=== PATIENT | female | born 1970 | race Caucasian/White ===

== ENCOUNTER → 2019-12-12 | Outpatient (CLI) | payer BC ==
[~2019-12-12] MED LIST: BENI20TA18 PO; IBUP200C89 PO; MIRE1IUD IU; PERC5TAB12 PO; ROSU10TA6 PO; XARE10TA PO
[2019-12-12 09:24] LABS: HEMATOCRIT 35.7 % (36.0-47.0); HEMOGLOBIN 12.2 g/dl (12.0-15.5); MEAN CORPUSCULAR HEMOGLOBIN 33.2 pg (27.0-33.0); MEAN CORPUSCULAR HGB CONC 34.2 g/dl (32.0-36.5); MEAN CORPUSCULAR VOLUME 97.3 fl (80.0-96.0); PLATELET COUNT, AUTOMATED 225 10^3/uL (150-450); RED BLOOD COUNT 3.67 10^6/uL (4.00-5.40); WHITE BLOOD COUNT 7.3 10^3/uL (4.0-10.0)
[2019-12-12 09:34] LABS: INR 0.95; PROTHROMBIN TIME 12.8 SECONDS (12.5-14.3)
[2019-12-12 09:48] LABS: ERYTHROCYTE SEDIMENTATION RATE 19 mm/hr (0-20)
[2019-12-12 09:50] LABS: ALBUMIN 3.8 GM/DL (3.2-5.2); ALT/SGPT 40 U/L (12-78); BILIRUBIN,TOTAL 0.4 MG/DL (0.2-1.0); BLOOD UREA NITROGEN 7 MG/DL (7-18); CALCIUM LEVEL 9.2 MG/DL (8.5-10.1); CARBON DIOXIDE LEVEL 30 MEQ/L (21-32); CHLORIDE LEVEL 107 MEQ/L (98-107); GLOMERULAR FILTRATION RATE > 60.0 (>58); GLUCOSE, FASTING 84 MG/DL (70-100); SODIUM LEVEL 142 MEQ/L (136-145); TOTAL PROTEIN 7.3 GM/DL (6.4-8.2)
--- NOTE | 2019-12-12 10:16 | ECGEPIP ---
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
--- NOTE | 2019-12-17 10:41 | REP ---
CHEST XRAY: 12/12/19 CLINICAL: Preoperative assessment for left knee replacement. TECHNIQUE: PA and lateral. COMPARISON: None. FINDINGS: Mediastinum and cardiac silhouette normal. Lung valdez are clear. No consolidation, effusion, or pneumothorax. Skeletal structures intact. Evidence for prior anterior cervical fixation. IMPRESSION: No acute cardiopulmonary process or focal consolidation. MTDD
== END ==
LOC: M LAB 08:49
PROVIDERS: ATTEND Orthopaedic Surgery
DX: Z01.818 Encounter for other preprocedural examination (principal); M17.12 Unilateral primary osteoarthritis, left knee; I10 Essential (primary) hypertension

== ENCOUNTER 2019-12-24 16:15 | Inpatient (IN) | payer BC ==
--- NOTE | 2019-12-21 11:05 | HPE ---
DATE OF ADMISSION: 12/31/2019 CHIEF COMPLAINT: Left knee pain. HISTORY OF PRESENT ILLNESS: Lesley is a pleasant 49-year-old female with progressively worsening left knee pain and stiffness. She has failed to improve with conservative treatment. She has elected for surgery for her continued symptoms. She has pain with weightbearing activities and her activities of daily living. X-rays of the knee are notable for advanced osteoarthritis of the left knee joint. She is consented for a left total knee arthroplasty by Dr. Bryan Neely. ALLERGIES: PENICILLIN. CURRENT MEDICATIONS: Benicar and rosuvastatin. PAST MEDICAL HISTORY: * Hypertension. * Hyperlipidemia. PAST SURGICAL HISTORY: Lumbar and cervical fusions. 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 Does not smoke. Occasionally drinks alcohol. FAMILY HISTORY: Non-contributory. REVIEW OF SYSTEMS: The patient denies chest pain, heart palpitations, cough, wheezing, difficulty breathing, and shortness of breath. She denies abdominal pain, nausea, vomiting, diarrhea, or constipation. She denies recent upper respiratory infections or urinary tract infection symptoms. She does complain of persistent pain in the left knee. PHYSICAL EXAMINATION: GENERAL: She is well-nourished, well-developed, in no acute distress, alert female patient. She ambulates with a moderate limp favoring the left lower extremity. She is not using assistive devices. VITAL SIGNS: She is 64.5 inches tall, weight 222 pounds, temperature 96.9, blood pressure 136/55, respirations 13, pulse 78. NECK: Supple without adenopathy or jugular venous distention. No carotid bruits appreciated upon auscultation. LUNGS: Clear to auscultation without rales or wheezes. HEART: Regular rate and rhythm. ABDOMEN: Bowel sounds present. EXTREMITIES: Examination of the knee revealed intact skin. She had decreased range of motion due to pain and stiffness. The limb is neurovascularly intact. IMAGING: Chest x-ray showed no acute cardiopulmonary disease processes. DIAGNOSTIC STUDIES: EKG showed sinus rhythm at 68 beats per minute. LABORATORY DATA: ProTime 12.8, INR 0.95. CBC showed a red count of 3.67, hematocrit 35.7, MCV 97.3, mean corpuscular hemoglobin of 33.2. Sed rate 19. Glucose 84, BUN 7, creatinine 0.7, sodium 142, potassium 4.0. IMPRESSION: Symptomatic osteoarthritis of the left knee joint PLAN: Consented for a left total knee arthroplasty by Dr. Bryan Neely. QUINTIN
[~2019-12-24] VITALS: Ht 157.5 cm; Wt 101.5 kg
[~2019-12-24 16:15] MED LIST changes: -PERC5TAB12 PO; -XARE10TA PO
[2019-12-31] VITALS (7 sets, daily range): BP systolic 124–128; BP diastolic 73–84
[2019-12-31] MEDS ORDERED: LIDOCAINE 1% MDV 20ML VIAL SQ PRN (06:00)
[2019-12-31] MEDS ORDERED: MIDAZOLAM INJ 2MG/2ML VIAL (J2250 PER 1MG) As Ordered ONE ×2 (06:49→07:57)
[2019-12-31] MEDS ORDERED: fentaNYL 100 MCG/2 ML INJECTION (J3010) As Ordered ONE ×2 (06:49→07:57)
[2019-12-31] MEDS ORDERED: LR 1,000 ML IV ONE (07:00)
[2019-12-31] MEDS ORDERED: PREGABALIN 75 MG CAP(LYRICA) PO ONE (07:15)
[2019-12-31] MEDS ORDERED: CelecoXIB 400 MG CAP PO ONE (07:15)
[2019-12-31] MEDS ORDERED: TRANEXAMIC ACID 100 MG/ML 10ML VIAL As Ordered ONE (07:15)
[2019-12-31] MEDS ORDERED: PERCOCET 5MG/325MG TAB PO ONE (07:15)
[2019-12-31] MEDS ORDERED: VANCOMYCIN HCL 1,000 MG, VIAL MATE ADAPTER 1 EACH in D5W 250 ML IV ONE (07:15)
[2019-12-31] MEDS ORDERED: BUPIVACAINE/EPIN 0.5% 30 ML VIAL As Ordered ONE (07:16)
[2019-12-31] MEDS ORDERED: CLINDAMYCIN INJ 900MG/6ML VIAL As Ordered ONE (07:16)
[2019-12-31] MEDS ORDERED: BUPIVACAINE HCL 0.25% 10ML VIAL As Ordered ONE (07:16)
[2019-12-31] MEDS ORDERED: EPINEPHrine INJ 1 MG/ML 1ML AMP As Ordered ONE (07:16)
[2019-12-31] MEDS ORDERED: BUPIVACAINE LIPOSOME/PF 1.3% 20ML VIAL (13.3MG/ML)(EXPAREL)(C9290 PER1MG) As Ordered ONE (07:16)
[2019-12-31] MEDS ORDERED: BUPIVACAINE HCL 0.5% 10ML VIAL As Ordered ONE (07:19)
[2019-12-31] MEDS: MIDAZOLAM INJ 2MG/2ML VIAL (J2250 PER 1MG) IV PRN ×2 (07:21→07:22)
[2019-12-31] MEDS: fentaNYL 100 MCG/2 ML INJECTION (J3010) IV PRN ×2 (07:21→07:24)
[2019-12-31] MEDS ORDERED: LIDOCAINE 2% 100MG/5ML SDV (FOR ANES.) As Ordered ONE (07:57)
[2019-12-31] MEDS ORDERED: propofoL 200 MG/20 ML VIAL As Ordered ONE ×3 (07:57→09:21)
[2019-12-31] MEDS: OLMESARTAN MEDOXOMIL 20 MG TAB (BENICAR) PO SCH (09:00)
[2019-12-31] MEDS ORDERED: LIDOCAINE 2% MDV 20ML VIAL ONE (09:32)
[2019-12-31] MEDS ORDERED: dexameTHASONE 10MG/1ML VIAL PRES.FREE (J1100 PER 1MG) ONE (09:32)
[2019-12-31] MEDS ORDERED: ROPIvacaine 0.5% 30ML INJECTION (J2795 PER 1MG) ONE (09:32)
--- NOTE | 2019-12-31 10:30 | REP ---
INDICATION: POST OP IN PACU 2238. COMPARISON: None TECHNIQUE: Two views FINDINGS: There is a right total knee arthroplasty evident with the 3 components well aligned in relationship to each other and the [place] bone. Small amounts of fluid and air in the soft tissues and joint. There is no evidence of acute fracture or foreign body. IMPRESSION: Status post left total knee arthroplasty with the components well aligned with each other and the [place] bone in the immediate postoperative the changes as expected. <Electronically signed by Amilcar Jang > 12/31/19 1020
[2019-12-31] MEDS ORDERED: LR 1,000 ML IV SCH (10:45)
[2019-12-31] MEDS ORDERED: ONDANSETRON 4MG/2ML VIAL IV PRN ×2 (10:45)
[2019-12-31] MEDS: LR 1,000 ML IV SCH ×2 (10:45→20:45)
[2019-12-31] MEDS ORDERED: PROMETHAZINE INJ 25 MG/ML VIAL (J2550) IV PRN (10:45)
[2019-12-31] MEDS ORDERED: fentaNYL 100 MCG/2 ML INJECTION (J3010) IV PRN (10:45)
[2019-12-31] MEDS ORDERED: PERCOCET 5MG/325MG TAB PO PRN (10:45)
[2019-12-31] MEDS ORDERED: ACETAMINOPHEN TAB 650MG DOSE (2X325MG) PO PRN (10:45)
[2019-12-31] MEDS ORDERED: HYDROMORPHONE HCL 0.5 MG/ 0.5 ML SYRINGE (J1170 PER 1) IV PRN ×2 (11:00)
[2019-12-31] MEDS: hydroCHLOROthiazide 12.5 MG CAPSULE PO SCH (12:58)
[2019-12-31] MEDS: ROSUVASTATIN 10 MG TAB (CRESTOR) PO SCH (12:58)
[2019-12-31] MEDS: PERCOCET 5MG/325MG TAB PO PRN ×2 (12:58→23:52)
[2019-12-31] MEDS: GABAPENTIN 100 MG CAP PO SCH ×3 (15:24→20:13)
[2019-12-31] MEDS: VANCOMYCIN HCL 1,000 MG, VIAL MATE ADAPTER 1 EACH in D5W 250 ML IV SCH (18:05)
[2020-01-01 02:00] VITALS: BP 100/64
[2020-01-01 06:00] VITALS: BP 120/68
[2020-01-01] MEDS ORDERED: PERC5TAB12 PO (06:26)
[2020-01-01] MEDS ORDERED: XARE10TA PO (06:26)
[2020-01-01] MEDS: VANCOMYCIN HCL 1,000 MG, VIAL MATE ADAPTER 1 EACH in D5W 250 ML IV SCH (06:59)
[2020-01-01] MEDS: PERCOCET 5MG/325MG TAB PO PRN ×2 (07:04→11:37)
[2020-01-01] MEDS: ROSUVASTATIN 10 MG TAB (CRESTOR) PO SCH (08:40)
[2020-01-01] MEDS: hydroCHLOROthiazide 12.5 MG CAPSULE PO SCH (08:40)
[2020-01-01] MEDS: GABAPENTIN 100 MG CAP PO SCH (08:41)
[2020-01-01] MEDS ORDERED: CelecoXIB 400 MG CAP PO ONE (09:00)
[2020-01-01] MEDS ORDERED: MOM 30ML SUSPENSION UDC PO SCH (09:00)
[2020-01-01] MEDS ORDERED: MIRALAX *UNIT DOSE* 17GM PACKET PO SCH (09:00)
[2020-01-01 10:00] VITALS: BP_SYST 101; BP_SYST 140; BP_DIAS 56; BP_DIAS 75
[2020-01-01 10:37] VITALS: BP 120/68
[2020-01-01] MEDS: OLMESARTAN MEDOXOMIL 20 MG TAB (BENICAR) PO SCH (10:37)
--- NOTE | 2020-01-01 12:47 | RO ---
DATE OF OPERATION: 12/31/2019 PREOPERATIVE DIAGNOSIS: Osteoarthritis, left knee. POSTOPERATIVE DIAGNOSIS: Osteoarthritis, left knee. PROCEDURE PERFORMED: Left total knee arthroplasty. SURGEON: Bryan Neely M.D. DJANGO DEVELOPER: Dinesh Mukherjee PA-C ANESTHESIA: Spinal with block. ESTIMATED BLOOD LOSS: Less than 60 replaced with crystalloid. COMPLICATIONS: None. TOURNIQUET TIME: 18 minutes at 250. COMPONENTS USED: DePuy ATTUNE knee system; size 6 femoral component, size 5 tibial component, 35 mm patella button, and 8 mm rotating platform polyethylene posterior stabilized spacer. One packet radiopaque bone cement. INDICATIONS FOR PROCEDURE: Progressive discomfort in the left knee with radiographic evidence of severe arthritic change. The patient has now elected for operative intervention. CONSENT: Reviewed in detail with the patient including a raimundo discussion of the pathology involved, the procedure proposed, alternatives including doing nothing or injections, and risks including, but not limited to pain, failure, need for more surgery, need for revision surgery, infection, bleeding, blood loss, blood clots, and other issues. The patient agrees to proceed. DESCRIPTION OF PROCEDURE: The patient was identified in the holding area. Site and side verified and brought to the preoperative area. A block was administered at the femoral block, and then brought to the operating room where spinal anesthesia was administered. She was positioned for exposure of the left lower extremity for arthroplasty. The tourniquet was high on the left thigh, sterilely prepped and draped in the usual fashion for exposure of the left lower extremity. Once I and the wood fence erector were comfortable with positioning and draping, a time-out was accomplished. The line of the incision was infiltrated with 0.5% Marcaine with epinephrine made with a 10-blade knife, developed down through the skin and subcuticular tissues to the extensor mechanism. Standard medial and parapatellar arthrotomy was accomplished. The patella was everted. Medial release was accomplished. Soft tissue was cleared from the anterior femur. The toe was everted and the knee was placed in the flexed position. Femoral canal was entered with the canal opening reamer. Intramedullary distal femoral cutting guide with 6 degrees valgus was installed and pinned into place. I placed Hohmann retractors. An oscillating saw was utilized to make the distal femoral cut by Mr. Mukherjee. The cut was verified and the pins were removed. AP sizing guide was applied and pinned into place. Anterior, posterior, and chamfer cuts were then made. Sizing guide removed. Attention was turned to tibial side. Extramedullary jig was applied 4 mm off the medial side, pinned into place, and verified with drop-zaynab. Hohmann retractors were placed. Oscillating saw utilized to make proximal tibial cut. Proximal tibial section removed. Next, lamina spreaders were utilized to clear posteriorly and remove meniscus. Next, a notch cutter was installed and pinned into place. A femoral notch cut was made using the oscillating saw. Blast was utilized to further contour and notch guide was removed. Next, spacer blocks were installed to predict the size 8 mm in extension, as well as flexion. Next, tibia was subluxed anteriorly. Tibial trial tray pinned into place. Tibial broach guide pinned into place. Tibial canal opening drill utilized followed by tibial broach left in place. Next, trial components were then installed. The knee was placed through a range of motion and found to be stable and full extension was easily achieved. The patella was everted. Posterior patella cut was made with the oscillating saw. A 35 mm patella button was measured, drilled, trial placed, and the knee placed through range of motion. The patella had good tracking. Next, at this stage Mr. Mukherjee stepped to the back table to prepare the bone cement. I removed all trial components and utilized pulse lavage to prepare the bone surfaces. Also, the leg was elevated and at this point, the tourniquet was inflated after gravity exsanguination. Pulse lavage was utilized to clear the bony tissues, blood, marrow, and fat. The surfaces were dried. When the cement was the appropriate consistency, posterior femoral condyle cement was applied. Tibial component cemented into place. Excess cement cleared with curettes. Femoral component cemented into place. Excess cement cleared with curettes. Nontrial rotating platform posterior stabilized spacer was installed. The knee was reduced and placed in the extended position. The patella was everted. Nontrial patella was installed, cemented into place, and clamped into place. Next, Exparel solution was injected around the knee. TXA solution was placed in the knee and allowed to stand for more than one minute. Pulse lavage was utilized for irrigation. The tourniquet was deflated. The wound was closed at the extensor mechanism with interrupted, as well as running STRATAFIX stitches. The deep dermis was closed with interrupted stitch. Prineo dressing was applied. The patient was then moved to the recovery room in good condition. For further details, please refer to the medical record. QUINTIN
[2020-01-01] MEDS ORDERED: RIVAROXABAN 10 MG TAB (XARELTO) PO SCH (18:00)
== END 2020-01-01 12:15 | disposition home or self-care (01) | DRG 302 ==
LOC: M OR 12-31 06:11 → M MS5PR 12-31 11:05
PROVIDERS: ADMIT Orthopaedic Surgery; ATTEND Orthopaedic Surgery
PROC: 0SRD0J9 Replacement of Left Knee Joint with Synthetic Substitute, Cemented, Open Approach (ICD-10-PCS; principal; 2019-12-31 07:30)
DX: M17.12 Unilateral primary osteoarthritis, left knee (principal); I10 Essential (primary) hypertension; E78.5 Hyperlipidemia, unspecified

== ENCOUNTER → 2019-12-26 | Outpatient (CLI) | payer OTHER, BC ==
[~2019-12-26] MED LIST changes: +PERC5TAB12 PO; +XARE10TA PO
== END ==
LOC: M LABSMTC 10:11
PROVIDERS: ATTEND Anesthesiology
DX: Z01.818 Encounter for other preprocedural examination (principal)
CPT/HCPCS: C9803; U0003

== ENCOUNTER → 2020-01-10 | Outpatient (CLI) | payer BC ==
--- NOTE | 2020-01-10 12:51 | REP ---
INDICATION: PAIN IN LEFT LEG. Status post recent total knee arthroplasty. Unable to extend leg or left foot. Question quadriceps tendon disruption. COMPARISON: Comparison knee radiographs December 31, 2019. This was due to surgery.. TECHNIQUE: Parasagittal and transverse scanning was performed of the anterior knee above and below the patellar prosthetic component. Scan quality was inhibited by the anterior incision, it is overlying dressing, and body habitus and edema. FINDINGS: There is fluid in the distribution of the suprapatellar bursa consistent with some postoperative joint fluid. Heterogeneous echogenicity pattern is seen in the distal vastus lateralis muscle and I cannot exclude partial tear of the distal vastus lateralis muscle. We could not confidently identify the quadriceps tendon and only identify the patellar tendon with great difficulty. Exam is technically quite challenging. Sonography was accomplished in part in my presence. The vastus medialis musculature appears more homogeneous and intact. IMPRESSION: Less than optimal exam for visualization of the quadriceps tendon itself. The patellar tendon is visualized with difficulty but appears to be intact. There is heterogeneous echogenicity in the distal vastus lateralis musculature. The quadriceps tendon was not confidently identified <Electronically signed by Porfirio Copeland > 01/10/20 [id number]
== END ==
LOC: M RAD 11:17
PROVIDERS: ATTEND Physician Assistant
DX: M79.605 Pain in left leg (principal); Z96.652 Presence of left artificial knee joint

== ENCOUNTER → 2020-04-29 | Outpatient (REF) | payer BC ==
[~2020-04-29] MED LIST changes: +BENI40TA28 PO; +BENI40TA3 PO; +BENI40TA7 PO; +CELE1CAP4 PO; +COLA50CA3 PO; +DICL50TAB PR; +DOCU10CA PO; +MAPA500T17 PO; +MEDR4PAK PO; +OXYC-1 PO; +PERC5TAB PO; +PERC7.5T12 PO; +PERCOCET PO
== END ==
LOC: M SFHCCLAY 11:50
PROVIDERS: ATTEND Nurse Practitioner Family
DX: Z01.84 Encounter for antibody response examination (principal)

== ENCOUNTER → 2022-01-01 | Outpatient (CLI) | payer MEDICARE, OTHER ==
[~2022-01-01] MED LIST changes: -BENI20TA18 PO; -BENI40TA28 PO; +OLME-1 PO; +OLME-2 PO
== END ==
LOC: M PLARAD 10:33
PROVIDERS: ATTEND Orthopaedic Surgery
DX: M25.561 Pain in right knee (principal); S83.241A Other tear of medial meniscus, current injury, right knee, initial encounter; X58.XXXA Exposure to other specified factors, initial encounter; Y92.9 Unspecified place or not applicable; Y99.9 Unspecified external cause status; Y93.9 Activity, unspecified; M79.89 Other specified soft tissue disorders; M94.261 Chondromalacia, right knee; M25.461 Effusion, right knee; M71.21 Synovial cyst of popliteal space [Baker], right knee

== ENCOUNTER 2023-03-21 10:16 | Emergency (ER) | payer BC, OTHER ==
[~2023-03-21] VITALS: Ht 157.5 cm; Wt 106.6 kg
[2023-03-21 10:18] VITALS: TEMP 97.7
[2023-03-21] MEDS ORDERED: LEVO25TA5 (10:27)
[2023-03-21 11:01] LABS: BASO % 0.2 % (0.0-1.0); EOS % 0.1 % (0.0-3.0); HEMATOCRIT 40.2 % (36.0-47.0); HEMOGLOBIN 13.9 g/dl (12.0-15.5); LYMPH # 1.4 10^3/uL (1.5-5.0); LYMPH % 14.3 % (24.0-44.0); MEAN CORPUSCULAR HEMOGLOBIN 34.5 pg (27.0-33.0); MEAN CORPUSCULAR HGB CONC 34.6 g/dl (32.0-36.5); MEAN CORPUSCULAR VOLUME 99.8 fl (80.0-96.0); MONO # 0.5 10^3/uL (0.0-0.8); MONO % 5.5 % (2.0-8.0); NEUTROPHILS # 7.7 10^3/uL (1.5-8.5); NEUTROPHILS % 79.6 % (36.0-66.0); PLATELET COUNT, AUTOMATED 228 10^3/uL (150-450); RED BLOOD COUNT 4.03 10^6/uL (4.00-5.40); WHITE BLOOD COUNT 9.7 10^3/uL (4.0-10.0)
[2023-03-21 11:12] LABS: INR 1.14; PARTIAL THROMBOPLASTIN TIME 23.9 SECONDS (24.8-34.2); PROTHROMBIN TIME 14.3 SECONDS (12.5-14.5)
[2023-03-21] MEDS ORDERED: MECLIZINE 25 MG TABLET PO ONE (11:25)
[2023-03-21 11:28] LABS: BLOOD UREA NITROGEN 8 MG/DL (9-23); CALCIUM LEVEL 9.7 MG/DL (8.5-10.1); CARBON DIOXIDE LEVEL 30 MMOL/L (20-31); CHLORIDE LEVEL 100 MMOL/L (98-107); CK-MB VALUE MASS < 1.0 NG/ML (<3.6); CPK CREATINE PHOSPHOKINASE 75 U/L (34-145); CREATININE FOR GFR 0.62 MG/DL (0.55-1.30); GLOMERULAR FILTRATION RATE > 60.0 (>51); GLUCOSE, FASTING 124 MG/DL (60-100); MB/CK RELATIVE INDEX 1.33 (< OR =4); POTASSIUM SERUM 3.6 MMOL/L (3.5-5.1); SODIUM LEVEL 135 MMOL/L (136-145)
[2023-03-21 12:30] VITALS: BP 110/58
[2023-03-21 12:31] VITALS: O2SAT 97
[2023-03-21 13:01] LABS: CK-MB VALUE MASS < 1.0 NG/ML (<3.6)
[2023-03-21 13:03] LABS: CPK CREATINE PHOSPHOKINASE 74 U/L (34-145); MB/CK RELATIVE INDEX 1.35 (< OR =4)
[2023-03-21] MEDS ORDERED: ONDANSETRON 4MG 2ML VIAL IV ONE (13:50)
[2023-03-21] MEDS ORDERED: MECL-209 PO (14:17)
== END 2023-03-21 14:43 | disposition home or self-care (01) ==
LOC: M ED 10:16
DX: H81.4 Vertigo of central origin (principal); I10 Essential (primary) hypertension; I45.81 Long QT syndrome; E78.5 Hyperlipidemia, unspecified; Z88.0 Allergy status to penicillin; Z91.041 Radiographic dye allergy status; Z79.3 Long term (current) use of hormonal contraceptives; Z79.83 Long term (current) use of bisphosphonates; Z79.899 Other long term (current) drug therapy
CPT/HCPCS: 70450; 70544; 70551; 71045; 80047; 80048; 82550; 82553; 84484; 85025; 85610; 85730; 93005; 93041; 94760; 96374; 99285; J2405

== ENCOUNTER → 2024-10-15 | Outpatient (REF) | payer BC, SELFPAY ==
[~2024-10-15] MED LIST changes: +LEVO25TA5; +MECL-209 PO; -ROSU10TA6 PO; +ROSU10TA90 PO
[2024-10-15 12:52] LABS: CALCIUM LEVEL 8.6 MG/DL (8.5-10.1); CARBON DIOXIDE LEVEL 32.0 MMOL/L (20-31); CHLORIDE LEVEL 102.0 MMOL/L (98-107); CREATININE FOR GFR 1.07 MG/DL (0.55-1.30); GLOMERULAR FILTRATION RATE 61.7 (>51); MAGNESIUM LEVEL 1.5 MG/DL (1.8-2.4); POTASSIUM SERUM 3.3 MMOL/L (3.5-5.1); SODIUM LEVEL 144.0 MMOL/L (136-145)
== END ==
LOC: M LABDRAWC 12:24
PROVIDERS: ATTEND Nurse Practitioner Family
DX: N17.9 Acute kidney failure, unspecified (principal)

== ENCOUNTER → 2024-10-15 | Outpatient (REF) | payer BC, SELFPAY ==
[2024-10-15 12:43] LABS: BASO # 0.0 10^3/uL (0.0-0.2); BASO % 0.6 % (0.0-1.0); EOS # 0.2 10^3/uL (0.0-0.5); EOS % 2.5 % (0.0-3.0); LYMPH # 1.6 10^3/uL (1.5-5.0); LYMPH % 25.3 % (24.0-44.0); MONO # 0.5 10^3/uL (0.0-0.8); MONO % 8.3 % (2.0-8.0); NEUTROPHILS # 4.0 10^3/uL (1.5-8.5); NEUTROPHILS % 63.0 % (36.0-66.0); PLATELET COUNT, AUTOMATED 283 10^3/uL (150-450)
[2024-10-15 12:52] LABS: ALT/SGPT < 9 U/L (7.0-40); AST/SGOT 15 U/L (<34); CALCIUM LEVEL 9.3 MG/DL (8.5-10.1); CARBON DIOXIDE LEVEL 33 MMOL/L (20-31); CHLORIDE LEVEL 102 MMOL/L (98-107); CREATININE FOR GFR 1.06 MG/DL (0.55-1.30); GLOMERULAR FILTRATION RATE 62.4 (>51); MAGNESIUM LEVEL 1.5 MG/DL (1.8-2.4); POTASSIUM SERUM 3.2 MMOL/L (3.5-5.1); SODIUM LEVEL 145 MMOL/L (136-145)
== END ==
LOC: M SFHCCLAY 07:56
PROVIDERS: ATTEND Nurse Practitioner Family
DX: K57.90 Diverticulosis of intestine, part unspecified, without perforation or abscess without bleeding (principal); N17.9 Acute kidney failure, unspecified; D64.9 Anemia, unspecified; E83.42 Hypomagnesemia

== ENCOUNTER → 2024-12-05 | Outpatient (REF) | payer BC ==
[~2024-12-05] MED LIST changes: +ROSU10TA61 PO; -ROSU10TA90 PO
[2024-12-05 15:16] LABS: ALT/SGPT 32.0 U/L (7.0-40); AST/SGOT 31.0 U/L (<34); CALCIUM LEVEL 10.2 MG/DL (8.5-10.1); CARBON DIOXIDE LEVEL 28.0 MMOL/L (20-31); CHLORIDE LEVEL 100.0 MMOL/L (98-107); CREATININE FOR GFR 0.9 MG/DL (0.55-1.30); GLOMERULAR FILTRATION RATE 76.0 (>51); POTASSIUM SERUM 4.4 MMOL/L (3.5-5.1); SODIUM LEVEL 139.0 MMOL/L (136-145)
== END ==
LOC: M LABDRAWC 13:29
DX: N17.9 Acute kidney failure, unspecified (principal)

== ENCOUNTER → 2024-12-05 | Outpatient (REF) | payer BC ==
[2024-12-05 14:29] LABS: FREE T4 1.32 NG/DL (0.89-1.76)
== END ==
LOC: M SFHCCLAY 08:32
PROVIDERS: ATTEND Nurse Practitioner Family
DX: E03.9 Hypothyroidism, unspecified (principal)

== ENCOUNTER → 2025-02-19 | Outpatient (CLI) | payer BC ==
[~2025-02-19] MED LIST changes: -ROSU10TA61 PO; +ROSU10TA90 PO
== END ==
LOC: M CARPUL 09:17
PROVIDERS: ATTEND Nurse Practitioner Family
DX: R06.09 Other forms of dyspnea (principal)